=== PATIENT | female | born 2000 | race Caucasian/White ===

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

== ENCOUNTER 2023-11-01 17:35 | Emergency (ER) | payer MEDICAID ==
[~2023-11-01] VITALS: Ht 149.9 cm; Wt 100.0 kg
[~2023-11-01 17:35] MED LIST: ONDA4TAB6 PO
[2023-11-01 17:37] VITALS: BP 131/92; PULSE 68; RESP 16; TEMP 98; O2SAT 95
[2023-11-01] MEDS ORDERED: IBUP-1985 PO (18:34)
== END 2023-11-01 18:50 | disposition home or self-care (01) ==
LOC: ER 17:35
DX: S93.401A Sprain of unspecified ligament of right ankle, initial encounter (principal); Z79.899 Other long term (current) drug therapy; W18.40XA Slipping, tripping and stumbling without falling, unspecified, initial encounter; Y93.89 Activity, other specified; Y92.89 Other specified places as the place of occurrence of the external cause; Y99.8 Other external cause status
CPT/HCPCS: 73610; 99283

== ENCOUNTER 2024-07-18 19:22 | Emergency (ER) | payer MEDICAID ==
[~2024-07-18] VITALS: Ht 149.9 cm; Wt 85.8 kg
[~2024-07-18 19:22] MED LIST changes: +IBUP-1985 PO
[2024-07-18 19:50] LABS: BILIRUBIN,URINE NEGATIVE (Neg); CLARITY,URINE CLEAR (Clear); COLOR,URINE YELLOW (Yellow); GLUCOSE, URINE NEGATIVE (Neg); KETONES,URINE NEGATIVE (Neg); LEUKOCYTE ESTERASE ,URINE NEGATIVE (Neg); NITRITES, URINE NEGATIVE (Neg); OCCULT BLOOD,URINE SMALL (Neg); PROTEIN,URINE NEGATIVE (Neg); URINE HCG NEGATIVE (NEG); UROBILINOGEN,URINE 0.2 E.U/dL (0.2-1.0)
[2024-07-18 20:05] LABS: UA COLLECTION TYPE VOIDED
[2024-07-18 20:07] LABS: BACTERIA,URINE 2+ /HPF (Neg); SQUAMOUS EPITHELIAL CELL,UR MODERATE /LPF (FEW); WBC,URINE 0-4 /HPF (0-4)
[2024-07-18] MEDS ORDERED: NITR100C6 PO (20:18)
[2024-07-18] MEDS: nitrofuran monohydrate/nitrofuran macrocrysal 100 MG (MacroBID) capsule PO ONE (20:19)
[2024-07-18 20:29] VITALS: BP 132/81; PULSE 64; RESP 18; TEMP 98; O2SAT 98
== END 2024-07-18 20:31 | disposition home or self-care (01) ==
LOC: ER 19:23
DX: R30.0 Dysuria (principal); Z79.1 Long term (current) use of non-steroidal anti-inflammatories (NSAID); Z79.899 Other long term (current) drug therapy
CPT/HCPCS: 81001; 81025; 99283

== ENCOUNTER 2024-12-23 12:47 | Emergency (ER) | payer MEDICAID ==
[~2024-12-23] VITALS: Ht 149.9 cm; Wt 92.5 kg
[~2024-12-23 12:47] MED LIST changes: +NITR100C6 PO
[2024-12-23 13:00] VITALS: BP 120/88; PULSE 106; RESP 16; O2SAT 98
--- NOTE | 2024-12-23 14:37 | Physician Documentation ---
History of Present Illness ~ Chief Complaint: Ear Pain Stated Complaint: EAR PAIN Time Seen by MD: 14:00 Primary Medical Doctor: DEBI LOGAN [facility] Female presents to the emergency department for evaluation of bilateral ear pain times multiple days patient reports that she has had drainage from the right ear I am and significant tenderness. He reports possible fevers but she isn't sure becaus she has not checked her temperature. Any recent swimming swing falls or virtually. Does report generally feeling unwell. Medication Reconciliation Allergies: Coded Allergies: No Known Allergies (Unverified , 12/23/24) Scheduled Ibuprofen (Ibuprofen), 1 TAB PO Q8H Nitrofurantoin Monohyd/M-Cryst (Macrobid 100 mg Capsule), 1 CAP PO Q12H Ondansetron Hcl (Zofran), 1 TAB PO Q6H Past Medical History Past Medical History: No Pertinent History Past Surgical History: no surgical history Drug Use: none Lives with: Family Lives In: Home Occupation: student Review of Systems ROS As stated above in the HPI, otherwise all systems are reviewed and negative. Physical Exam Vital Signs: Temperature: 98.3, Heart Rate: 106, Respiratory Rate: 16, BP: 120/88, Pulse Oximetry: 98, Weight: 92.550 Oxygen Flow Rate: 0 Physical Exam VITALS: Reviewed and as above. GENERAL: Alert, no apparent distress. HEENT: Normocephalic, atraumatic, PERRL, EOMI, dry mucosa, erythema and pain noted to the left ear, right ear erythema and drainage noted. TMs appear intact RESPIRATORY: Lungs clear, normal breath sounds, no respiratory distress. CHEST: No accessory muscle use, no retractions CV: Regular rate, rhythm, no edema, no murmur, No: JVD GI: Soft, non-tender, bowels sounds present, no rebound, guarding, or rigidity BACK: No CVA tenderness, or swelling MUSCULOSKELETAL No deformities, no edema SKIN: Warm and dry, no rash NEURO: Oriented x4, No motor or sensory deficit PSYCH: Normal mood and affect, no agitation Progress Results/Orders Results/Orders Vital Signs 12/23/24 13:00 Temp 98.3 Pulse 106 Resp 16 B/P (MAP) 120/88 Pulse Ox 98 O2 Flow Rate 0 Medical Decision Making Findings Exam and history are most consistent with Otitis Externa. No diabetes or immunosuppression. Low suspicion for mastoiditis, malignant otitis externa, AOM, herpes zoster oticus. Concern for perforated tympanic membrane, discharged with Ciprodex and patient to follow up with PMD in 1 to 2 days. Versus prevent if you have any overt drainage from either ear develop fevers nausea vomiting or any concerning symptoms that we discussed here today Departure Disposition: HOME / SELF CARE / HOMELESS Impression: Primary Impression: Otitis externa Additional Impression: Ear pain Condition: Stable Discharge Instructions: Earache, Adult, Otitis Externa Additional Instructions: Concern for perforated tympanic membrane, discharged with Ciprodex and patient to follow up with PMD in 1 to 2 days. Versus prevent if you have any overt drainage from either ear develop fevers nausea vomiting or any concerning symptoms that we discussed here today. Ibuprofen as needed for discomfort. Referrals: NO PRIMARY CARE PROVIDER (PCP) Prescriptions Ciprofloxacin Hcl/Hc Otic Susp* (Cipro Hc Otic Susp*) 10 Ml Bottle 3 DRP EACH EAR BID for 7 Days, #1 EACH SHAKE WELL BEFORE USING Prov: LISANDRA CHONG 12/23/24 Education Educated: Patient Educated regarding: treatment, need for follow up LISANDRA CHONG Dec 23, 2024 14:37
[2024-12-23] MEDS ORDERED: CIPR10DR EACH EAR (14:38)
[2024-12-23 14:57] VITALS: TEMP 98.3
== END 2024-12-23 15:00 | disposition home or self-care (01) ==
LOC: ER 12:47
DX: H60.93 Unspecified otitis externa, bilateral (principal)
CPT/HCPCS: 99283

== ENCOUNTER 2024-12-25 15:47 | Emergency (ER) | payer MEDICAID ==
[~2024-12-25] VITALS: Ht 149.9 cm; Wt 91.4 kg
[~2024-12-25 15:47] MED LIST changes: +CIPR10DR EACH EAR
[2024-12-25 16:18] VITALS: BP 162/144; PULSE 88; RESP 18; TEMP 98.3; O2SAT 96
[2024-12-25] MEDS ORDERED: AMOX-580 PO (16:36)
--- NOTE | 2024-12-25 16:36 | Physician Documentation ---
History of Present Illness ~ Chief Complaint: Ear Pain Stated Complaint: RECHECK EAR INFECTION Time Seen by MD: 15:49 Primary Medical Doctor: DEBI JACOBS Patient presents to the emergency department for re-evaluation of ear pain. Patient reports that the original painful ear has improved slightly but now she has increased pain in the left ear. Reports that her throat is sore and her glands are swollen now. Patient is very teary her in the triage room and states that her ear is very painful both inside and outside. Patient denies fevers. Expresses that she is concerned about lock jaw because her grandmother told her that her symptoms are consistent with it. She reports that she is up-to-date on her tetanus and she is moving her jaw freely as she speaks. Patient reports that she has taken the otic drops as prescribed. She reports that she has not taken any Tylenol or Ibuprofen at home to help with discomfort. Medication Reconciliation Allergies: Coded Allergies: No Known Allergies (Unverified , 12/25/24) Scheduled Amox Tr/Potassium Clavulanate 875/125 MG (Augmentin 875/125 MG), 1 TAB PO Q12H Ciprofloxacin Hcl/Hc Otic Susp* (Cipro Hc Otic Susp*), 3 DRP EACH EAR BID Ibuprofen (Ibuprofen), 1 TAB PO Q8H Nitrofurantoin Monohyd/M-Cryst (Macrobid 100 mg Capsule), 1 CAP PO Q12H Ondansetron Hcl (Zofran), 1 TAB PO Q6H Past Medical History Past Medical History: No Pertinent History Past Surgical History: no surgical history Drug Use: none Lives with: Family Lives In: Home Occupation: student Physical Exam Vital Signs: Temperature: 98.3, Source: Temporal, Heart Rate: 88, Respiratory Rate: 18, BP: 162/144, Pulse Oximetry: 96, Weight: 91.400 Oxygen Flow Rate: 0 Progress Results/Orders Results/Orders Orders - KEYLA GRACE Cult Throat + R/O Beta Strep (12/25/24 17:04) Completed Orders - KEYLA GRACE Strep A Rapid (12/25/24 16:26) Acetaminophen 325mg Tablet (Tylenol Tabl (12/25/24 16:35) Ibuprofen Tablet (Motrin Tablet) (12/25/24 16:35) Amox Tr/Potassium Clavulanate (Augmentin (12/25/24 16:35) Vital Signs 12/25/24 16:18 Temp 98.3 Pulse 88 Resp 18 B/P (MAP) 162/144 Pulse Ox 96 O2 Flow Rate 0 Laboratory Tests Test 12/25/24 16:36 Group A Streptococcus Rapid Negative Medical Decision Making Findings Well-appearing patient with symptoms/signs consistent with acute otitis externa. No evidence of mastoiditis, sinusitis and patient at baseline mental status making intracranial abscess, meningitis, or other intracranial process unlikely. Symptoms are also not consistent with more concerning sepsis or focal bacterial infection. Patient is tolerating POs and able to take medications as an outpatient.No fevers reported or here in the emergency room. No neck pain/stiffness, no pain to the mastoid with palpation. Pain controlled in em ergency room with tylenol and ibuprofen and parents instructed on outpatient pain control. Patient has been given strict return precautions and agreed with assessment and plan. Plan to continue with Otic drops and to add Augmentin. Departure Disposition: HOME / SELF CARE / HOMELESS Impression: Primary Impression: Ear pain Additional Impression: Otitis externa Condition: Stable Discharge Instructions: Otitis Externa, [id number] Additional Instructions: You were seen in the emergency department for re-evaluation of what was initially right-sided ear pain that has improved and I you have increased left- sided ear pain we have prescribed an additional antibiotic based on your symptoms. Antibiotic until it is complete and as directed. Take Tylenol and Ibuprofen for discomfort. Please follow up with your primary care provider if you have any worsening of your current symptoms, there is no resolution to your symptoms after multiple days on antibiotics. To the emergency department if you have any fevers increased pain your ears, or pain spreads beyond the localized area at your ears, if you have any pain behind your ear is, or if you develop any neck pain. Referrals: NO PRIMARY CARE PROVIDER (PCP) Prescriptions Amox Tr/Potassium Clavulanate 875/125 MG (Augmentin 875/125 MG) 875 Mg-125 Mg Tablet 1 TAB PO Q12H for 10 Days, #20 TAB Prov: KEYLA GRACE 12/25/24 Education Educated: Patient Educated regarding: diagnosis, treatment, need for follow up Signature Scribe Signature: . Attestation: Scribed for Keyla Grace by NAMRATA Mahajan . 12/26/24 11:16 KEYLA GRACE Dec 25, 2024 16:36
[2024-12-25] MEDS: amox tr/potassium clavulanate 875/125mg TAB PO ONE (16:48)
[2024-12-25] MEDS: ibuprofen tablet 400 MG TABLET PO ONE (16:49)
[2024-12-25 17:04] LABS: STREP A SCREEN NEGATIVE (Neg)
== END 2024-12-25 18:07 | disposition home or self-care (01) ==
LOC: ER 15:48
DX: H60.92 Unspecified otitis externa, left ear (principal)
CPT/HCPCS: 87081; 87880; 99284